=== PATIENT | female | born 1955 | race Caucasian/White ===

== ENCOUNTER 2020-10-09 09:44 | Inpatient (IN) ==
[2020-10-09] MEDS ORDERED: SODIUM CHLORIDE 0.9% 1,000 ML IV STA ×2 (10:55→12:37)
[2020-10-09] MEDS ORDERED: ONDANSETRON 4 MG/2 ML VIAL IV STA (10:56)
[2020-10-09 11:17] LABS: Basophils # 0.1 10*3/uL (0.0-0.2); Basophils % 0.2 % (0.0-0.8); Eosinophils # 0.1 10*3/uL (0.0-0.87); Eosinophils % 0.2 % (0.00-10.9); Hematocrit 31.3 VOL% (35.7-47.0); Hemoglobin 9.4 GM/DL (12.0-16.0); Immature Granulocytes % 1.3 %; Lymphocytes # 1.8 10*3/uL (1.4-4.0); Lymphocytes % 5.7 % (21.3-54.2); Mean Corpuscular Volume 74.9 FL (87-102); Mean Platelet Volume 8.7 FL (9.6-12.0); Monocytes % 1.3 % (1.7-12.7); NRBC # 0.02 10*3/uL; Neutrophils % 91.3 % (38.7-73.9); Platelet Count 612 T/CUMM (130-400); Red Blood Count 4.18 MC/CUMM (3.8-5.5); Red Cell Distribution Width 26.4 % (9.3-17.3)
[2020-10-09 11:40] LABS: Anisocytosis 1+; Band Neutrophils 20 % (0-10); Lymphocytes 3 % (20-55); Platelet Estimate Increased; Segmented Neutrophils 73 % (50-85); Smudge Cells Few; Total Cells Counted 100; Toxic Granulation 1+
[2020-10-09 11:41] LABS: Polychromasia Slight
[2020-10-09 11:51] LABS: Bilirubin,Urine Negative (Negative); Blood, Urine Small mg/dL (Negative); Glucose,Urine (UA) Negative (Negative); Ketones,Urine 5 mg/dL (Negative); Mucus,Urine Occasional /LPF (Occasional); Nitrite,Urine Positive (Negative); Protein,Urine 30 MG/DL; RBC,Urine 2 /HPF (0-4); Squamous Epithelial Cell,Urine Occasional /HPF (0-10); Urine Appearance Slightly Hazy (Clear); Urine Color Amber (Yellow); Urine Specific Gravity 1.017 (1.001-1.035); WBC,Urine 458 /HPF (0-6)
[2020-10-09] MEDS ORDERED: cefTRIAXone 1,000 MG in SODIUM CHLORIDE 0.9% 100 ML IV STA (12:00)
[2020-10-09] MEDS ORDERED: cefTRIAXone 1,000 MG VIAL ONE (12:07)
[2020-10-09 12:35] LABS: Albumin 1.6 G/DL (3.4-5.0); Bilirubin,Total 0.6 MG/DL (0.2-1.0); Calcium 8.2 MG/DL (8.5-10.1); Potassium 3.7 MMOL/L (3.5-5.1); Total Protein 7.1 G/DL (6.4-8.3)
[2020-10-09] MEDS ORDERED: DEXTROSE 50% 25 GM/50 ML VIAL IV PRN (13:32)
[2020-10-09] MEDS ORDERED: GLUCAGON 1 MG VIAL IM PRN (13:32)
[2020-10-09] MEDS: SODIUM CHLORIDE 0.9% 1,000 ML IV SCH (18:01)
[2020-10-09] MEDS: ROSUVASTATIN 10 MG TABLET PO SCH (20:41)
[2020-10-09] MEDS: QUEtiapine 25 MG TABLET PO SCH (20:41)
[2020-10-09] MEDS: ENOXAPARIN 40 MG/0.4 ML SYRINGE SUBCUT SCH (20:41)
[2020-10-09] MEDS: carvediloL 6.25 MG TABLET PO SCH (20:41)
[2020-10-09] MEDS: ONDANSETRON 4 MG/2 ML VIAL IV PRN (23:44)
[2020-10-10] MEDS ORDERED: ALUM/MAG/SIMETH/LIDO VISC 1:1 30 ML BOTTLE PO ONE (05:54)
[2020-10-10 06:06] LABS: Basophils # 0.1 10*3/uL (0.0-0.2); Basophils % 0.2 % (0.0-0.8); Eosinophils % 0.1 % (0.00-10.9); Hematocrit 27.4 VOL% (35.7-47.0); Hemoglobin 8.1 GM/DL (12.0-16.0); Immature Granulocytes % 1.7 %; Immature Granulocytes Absolute 0.37 #; Lymphocytes # 1.8 10*3/uL (1.4-4.0); Lymphocytes % 8.5 % (21.3-54.2); Mean Corpuscular HGB Conc 29.6 GM/DL (32-36); Mean Corpuscular Volume 77.2 FL (87-102); Mean Platelet Volume 8.8 FL (9.6-12.0); Monocytes % 4.3 % (1.7-12.7); Neutrophils % 85.2 % (38.7-73.9); Platelet Count 519 T/CUMM (130-400); Red Blood Count 3.55 MC/CUMM (3.8-5.5); Red Cell Distribution Width 25.6 % (9.3-17.3); White Blood Count 21.4 T/CUMM (4-12)
[2020-10-10 06:38] LABS: Band Neutrophils 2 % (0-10); Hypochromasia 1+; Lymphocytes 4 % (20-55); Microcytosis 1+; Platelet Estimate Increased; Segmented Neutrophils 93 % (50-85); Total Cells Counted 100
[2020-10-10] MEDS ORDERED: TOLTERODINE LA 2 MG CAPSULE PO SCH (09:00)
[2020-10-10 09:20] LABS: Alanine Aminotransferase 10 U/L (13-56); Alkaline Phosphatase 179 U/L (45-117); Aspartate Amino Transferase 31 U/L (0-37); Blood Urea Nitrogen 18 MG/DL (7-18); Calcium 7.4 MG/DL (8.5-10.1); Carbon Dioxide 17 MMOL/L (21-32); Estimated Glom Filtration Rate 67 ML/MIN; Glucose 79 MG/DL (74-106); Osmolality,Calculated 275.7 MOS/KG (273-304); Potassium 3.5 MMOL/L (3.5-5.1); Sodium 138 MMOL/L (136-145); Total Protein 5.2 G/DL (6.4-8.3); Triglycerides 91 MG/DL (2-150); VLDL CHOLESTEROL 18.2 MG/DL
[2020-10-10 09:21] LABS: HDL Cholesterol < 10 MG/DL (40-60)
[2020-10-10] MEDS: FOLIC ACID 0.4 MG TABLET PO SCH (09:28)
[2020-10-10] MEDS: lisinopriL 10 MG TABLET PO SCH (09:28)
[2020-10-10] MEDS: DULoxetine 30 MG CAPSULE PO SCH (09:28)
[2020-10-10] MEDS: CHOLECALCIFEROL 1,000 UNIT TABLET PO SCH (09:28)
[2020-10-10] MEDS: MONTELUKAST 10 MG TABLET PO SCH (09:28)
[2020-10-10] MEDS: cefTRIAXone 1,000 MG in SYRINGE 1 EACH IV SCH (09:29)
[2020-10-10] MEDS: ONDANSETRON 4 MG/2 ML VIAL IV PRN (10:35)
[2020-10-10] MEDS: carvediloL 6.25 MG TABLET PO SCH ×2 (10:35→16:35)
[2020-10-10] MEDS: SODIUM CHLORIDE 0.9% 1,000 ML IV SCH ×3 (10:41→21:43)
[2020-10-10] MEDS ORDERED: ONDANSETRON ODT 4 MG TABLET PO PRN (12:43)
[2020-10-10] MEDS: METOCLOPRAMIDE 10 MG TABLET PO SCH ×3 (13:54→21:42)
[2020-10-10] MEDS: PHENAZOPYRIDINE 95 MG TABLET PO SCH (16:35)
[2020-10-10] MEDS: ENOXAPARIN 40 MG/0.4 ML SYRINGE SUBCUT SCH (21:42)
[2020-10-10] MEDS: DOCUSATE SODIUM 100 MG CAPSULE PO SCH (21:42)
[2020-10-10] MEDS: QUEtiapine 25 MG TABLET PO SCH (21:43)
[2020-10-10] MEDS: ROSUVASTATIN 10 MG TABLET PO SCH (21:43)
[2020-10-11] MEDS: SODIUM CHLORIDE 0.9% 1,000 ML IV SCH ×4 (03:07→23:46)
[2020-10-11] MEDS: CHOLECALCIFEROL 1,000 UNIT TABLET PO SCH (09:01)
[2020-10-11] MEDS: DOCUSATE SODIUM 100 MG CAPSULE PO SCH ×2 (09:02→21:06)
[2020-10-11] MEDS: PHENAZOPYRIDINE 95 MG TABLET PO SCH ×3 (09:02→16:52)
[2020-10-11] MEDS: cefTRIAXone 1,000 MG in SYRINGE 1 EACH IV SCH (09:02)
[2020-10-11] MEDS: PANTOPRAZOLE 40 MG TABLET PO SCH (09:02)
[2020-10-11] MEDS: MONTELUKAST 10 MG TABLET PO SCH (09:02)
[2020-10-11] MEDS: lisinopriL 10 MG TABLET PO SCH (09:02)
[2020-10-11] MEDS: FOLIC ACID 0.4 MG TABLET PO SCH (09:02)
[2020-10-11] MEDS: METOCLOPRAMIDE 10 MG TABLET PO SCH ×4 (09:02→21:06)
[2020-10-11] MEDS: TOLTERODINE LA 2 MG CAPSULE PO SCH (09:05)
[2020-10-11] MEDS: carvediloL 6.25 MG TABLET PO SCH ×2 (09:54→16:53)
[2020-10-11] MEDS: DULoxetine 30 MG CAPSULE PO SCH (09:54)
[2020-10-11] MEDS: MEROPENEM 500 MG in SODIUM CHLORIDE 0.9% 100 ML IV SCH ×2 (17:26→23:46)
[2020-10-11] MEDS: ENOXAPARIN 40 MG/0.4 ML SYRINGE SUBCUT SCH (21:05)
[2020-10-11] MEDS: ROSUVASTATIN 10 MG TABLET PO SCH (21:06)
[2020-10-11] MEDS: QUEtiapine 25 MG TABLET PO SCH (21:06)
[2020-10-11] MEDS ORDERED: MEROPENEM 1,000 MG in SODIUM CHLORIDE 0.9% 100 ML IV SCH (22:00)
[2020-10-12] MEDS: MEROPENEM 500 MG in SODIUM CHLORIDE 0.9% 100 ML IV SCH ×4 (04:48→22:00)
[2020-10-12 06:33] LABS: Alanine Aminotransferase 12 U/L (13-56); Alkaline Phosphatase 188 U/L (45-117); Aspartate Amino Transferase 24 U/L (0-37); Bilirubin,Total < 0.39 MG/DL (0.2-1.0); Blood Urea Nitrogen 20 MG/DL (7-18); Calcium 7.6 MG/DL (8.5-10.1); Carbon Dioxide 19 MMOL/L (21-32); Estimated Glom Filtration Rate 78 ML/MIN; Glucose 66 MG/DL (74-106); Osmolality,Calculated 277.5 MOS/KG (273-304); Potassium 3.6 MMOL/L (3.5-5.1); Sodium 139 MMOL/L (136-145); Total Protein 5.2 G/DL (6.4-8.3)
[2020-10-12 06:34] LABS: Basophils # 0.1 10*3/uL (0.0-0.2); Basophils % 0.3 % (0.0-0.8); Eosinophils # 0.3 10*3/uL (0.0-0.87); Eosinophils % 1.4 % (0.00-10.9); Hematocrit 26.8 VOL% (35.7-47.0); Hemoglobin 7.8 GM/DL (12.0-16.0); Immature Granulocytes % 1.3 %; Immature Granulocytes Absolute 0.27 #; Lymphocytes # 1.8 10*3/uL (1.4-4.0); Lymphocytes % 8.3 % (21.3-54.2); Mean Corpuscular HGB Conc 29.1 GM/DL (32-36); Mean Corpuscular Volume 78.6 FL (87-102); Mean Platelet Volume 9.5 FL (9.6-12.0); Monocytes % 4.2 % (1.7-12.7); Neutrophils % 84.5 % (38.7-73.9); Platelet Count 463 T/CUMM (130-400); Red Blood Count 3.41 MC/CUMM (3.8-5.5); Red Cell Distribution Width 25.9 % (9.3-17.3); White Blood Count 21.5 T/CUMM (4-12)
[2020-10-12 06:46] LABS: Eosinophils 2 % (0-10); Hypochromasia 2+; Lymphocytes 9 % (20-55); Microcytosis 1+; Platelet Estimate Adequate; Segmented Neutrophils 84 % (50-85); Total Cells Counted 100
[2020-10-12] MEDS ORDERED: ETOMIDATE 20 MG/10 ML VIAL IV ONE (09:23)
[2020-10-12] MEDS ORDERED: LIDOCAINE 2% 5 ML VIAL ONE (09:23)
[2020-10-12] MEDS ORDERED: propofoL 200 MG/20 ML VIAL IV ONE (09:23)
[2020-10-12] MEDS ORDERED: PHENYLEPHRINE 1 MG/10 ML SYRINGE IV ONE (09:48)
[2020-10-12] MEDS: LACTATED RINGERS 1,000 ML IV SCH (10:15)
[2020-10-12] MEDS: METOCLOPRAMIDE 10 MG TABLET PO SCH ×4 (11:04→21:53)
[2020-10-12] MEDS: lisinopriL 10 MG TABLET PO SCH (12:06)
[2020-10-12] MEDS: PANTOPRAZOLE 40 MG TABLET PO SCH (12:06)
[2020-10-12] MEDS: carvediloL 6.25 MG TABLET PO SCH ×2 (12:06→16:26)
[2020-10-12] MEDS: MONTELUKAST 10 MG TABLET PO SCH (12:06)
[2020-10-12] MEDS: FOLIC ACID 0.4 MG TABLET PO SCH (12:07)
[2020-10-12] MEDS: CHOLECALCIFEROL 1,000 UNIT TABLET PO SCH (12:07)
[2020-10-12] MEDS: DULoxetine 30 MG CAPSULE PO SCH (12:07)
[2020-10-12] MEDS: PHENAZOPYRIDINE 95 MG TABLET PO SCH ×3 (12:08→16:39)
[2020-10-12] MEDS: DOCUSATE SODIUM 100 MG CAPSULE PO SCH ×2 (12:09→21:53)
[2020-10-12] MEDS ORDERED: ALBUMIN 25% 25 GM in PREMIX 1 EACH IV ONE (14:44)
[2020-10-12] MEDS: TOLTERODINE LA 2 MG CAPSULE PO SCH ×2 (16:01→16:40)
[2020-10-12] MEDS: QUEtiapine 25 MG TABLET PO SCH (21:54)
[2020-10-12] MEDS: ENOXAPARIN 40 MG/0.4 ML SYRINGE SUBCUT SCH (21:54)
[2020-10-12] MEDS: ROSUVASTATIN 10 MG TABLET PO SCH (21:54)
[2020-10-13] MEDS: MEROPENEM 500 MG in SODIUM CHLORIDE 0.9% 100 ML IV SCH ×4 (05:33→22:27)
[2020-10-13 06:43] LABS: Microalbum Ur Quant Random 5.8 MG/L (0-20); Microalbum/Creat Ratio Random 7.7 RATIO (0-30)
[2020-10-13 08:58] LABS: Basophils # 0.1 10*3/uL (0.0-0.2); Basophils % 0.3 % (0.0-0.8); Eosinophils # 0.4 10*3/uL (0.0-0.87); Eosinophils % 2.6 % (0.00-10.9); Hematocrit 25.1 VOL% (35.7-47.0); Immature Granulocytes % 2.4 %; Lymphocytes # 2.1 10*3/uL (1.4-4.0); Lymphocytes % 12.6 % (21.3-54.2); Mean Corpuscular HGB Conc 30.3 GM/DL (32-36); Mean Corpuscular Volume 75.6 FL (87-102); Mean Platelet Volume 9.1 FL (9.6-12.0); Monocytes % 6.2 % (1.7-12.7); Neutrophils % 75.9 % (38.7-73.9); Platelet Count 503 T/CUMM (130-400); Red Blood Count 3.32 MC/CUMM (3.8-5.5); Red Cell Distribution Width 25.8 % (9.3-17.3); White Blood Count 16.9 T/CUMM (4-12)
[2020-10-13 09:01] LABS: Albumin 1.5 G/DL (3.4-5.0); Bilirubin,Total 0.4 MG/DL (0.2-1.0); Calcium 7.9 MG/DL (8.5-10.1); Hemoglobin 7.6 GM/DL (12.0-16.0); Osmolality,Calculated 278.4 MOS/KG (273-304); Potassium 3.3 MMOL/L (3.5-5.1); Total Protein 5.5 G/DL (6.4-8.3)
[2020-10-13 09:44] LABS: Hypochromasia 2+
[2020-10-13 09:45] LABS: Microcytosis 1+; Ovalocytes Slight; Platelet Estimate Increased; Spherocytes Slight
[2020-10-13] MEDS ORDERED: SODIUM CHLORIDE 0.9% 100 ML IV ONE (09:54)
[2020-10-13] MEDS: PHENAZOPYRIDINE 95 MG TABLET PO SCH ×4 (10:19→18:04)
[2020-10-13] MEDS: PANTOPRAZOLE 40 MG TABLET PO SCH (10:19)
[2020-10-13] MEDS: CHOLECALCIFEROL 1,000 UNIT TABLET PO SCH (10:19)
[2020-10-13] MEDS: MONTELUKAST 10 MG TABLET PO SCH (10:20)
[2020-10-13] MEDS: FOLIC ACID 0.4 MG TABLET PO SCH (10:20)
[2020-10-13] MEDS: TOLTERODINE LA 2 MG CAPSULE PO SCH (10:20)
[2020-10-13] MEDS: lisinopriL 10 MG TABLET PO SCH (10:20)
[2020-10-13] MEDS: METOCLOPRAMIDE 10 MG TABLET PO SCH ×5 (10:20→20:59)
[2020-10-13] MEDS: DULoxetine 30 MG CAPSULE PO SCH (10:20)
[2020-10-13] MEDS: carvediloL 6.25 MG TABLET PO SCH (10:20)
[2020-10-13] MEDS: DOCUSATE SODIUM 100 MG CAPSULE PO SCH ×2 (10:38→20:59)
[2020-10-13] MEDS: carvediloL 12.5 MG TABLET PO SCH (16:35)
[2020-10-13] MEDS: ENOXAPARIN 40 MG/0.4 ML SYRINGE SUBCUT SCH (20:59)
[2020-10-13] MEDS: QUEtiapine 25 MG TABLET PO SCH (20:59)
[2020-10-13] MEDS: ROSUVASTATIN 10 MG TABLET PO SCH (20:59)
[2020-10-13] MEDS: LACTATED RINGERS 1,000 ML IV SCH (21:56)
[2020-10-14 05:30] LABS: Albumin 1.3 G/DL (3.4-5.0); Bilirubin,Total 0.4 MG/DL (0.2-1.0); Calcium 7.9 MG/DL (8.5-10.1); Osmolality,Calculated 277.4 MOS/KG (273-304); Total Protein 5.4 G/DL (6.4-8.3)
[2020-10-14] MEDS: MEROPENEM 500 MG in SODIUM CHLORIDE 0.9% 100 ML IV SCH ×4 (05:43→22:05)
[2020-10-14 05:49] LABS: Basophils # 0.1 10*3/uL (0.0-0.2); Basophils % 0.5 % (0.0-0.8); Eosinophils # 0.3 10*3/uL (0.0-0.87); Eosinophils % 1.9 % (0.00-10.9); Hematocrit 26.5 VOL% (35.7-47.0); Immature Granulocytes % 4.4 %; Immature Granulocytes Absolute 0.68 #; Lymphocytes # 2.2 10*3/uL (1.4-4.0); Lymphocytes % 14.2 % (21.3-54.2); Mean Corpuscular HGB Conc 29.4 GM/DL (32-36); Mean Corpuscular Volume 75.5 FL (87-102); Monocytes % 6.6 % (1.7-12.7); Neutrophils % 72.4 % (38.7-73.9); Platelet Count 505 T/CUMM (130-400); Red Blood Count 3.51 MC/CUMM (3.8-5.5); Red Cell Distribution Width 26.3 % (9.3-17.3); White Blood Count 15.5 T/CUMM (4-12)
[2020-10-14 05:51] LABS: Hemoglobin 7.8 GM/DL (12.0-16.0)
[2020-10-14 05:54] LABS: Eosinophils 4 % (0-10); Lymphocytes 8 % (20-55); Nucleated Red Blood Cells 1 (0-5); Segmented Neutrophils 85 % (50-85); Total Cells Counted 100
[2020-10-14 05:55] LABS: Hypochromasia 1+; Microcytosis 1+; Platelet Estimate Increased
[2020-10-14] MEDS: DULoxetine 30 MG CAPSULE PO SCH (10:28)
[2020-10-14] MEDS: METOCLOPRAMIDE 10 MG TABLET PO SCH ×4 (10:29→20:48)
[2020-10-14] MEDS: lisinopriL 10 MG TABLET PO SCH (10:30)
[2020-10-14] MEDS: FOLIC ACID 0.4 MG TABLET PO SCH (10:30)
[2020-10-14] MEDS: MONTELUKAST 10 MG TABLET PO SCH (10:30)
[2020-10-14] MEDS: TOLTERODINE LA 2 MG CAPSULE PO SCH (10:30)
[2020-10-14] MEDS: PANTOPRAZOLE 40 MG TABLET PO SCH (10:30)
[2020-10-14] MEDS: carvediloL 12.5 MG TABLET PO SCH ×2 (10:30→17:24)
[2020-10-14] MEDS: PHENAZOPYRIDINE 95 MG TABLET PO SCH ×3 (10:30→17:23)
[2020-10-14] MEDS: CHOLECALCIFEROL 1,000 UNIT TABLET PO SCH (10:31)
[2020-10-14] MEDS: POTASSIUM CHLORIDE 20 MEQ/15 ML UDCUP PER TUBE PRN ×3 (10:32→23:02)
[2020-10-14] MEDS: DOCUSATE SODIUM 100 MG CAPSULE PO SCH ×2 (11:41→20:48)
[2020-10-14] MEDS: QUEtiapine 25 MG TABLET PO SCH (20:48)
[2020-10-14] MEDS: ROSUVASTATIN 10 MG TABLET PO SCH (20:48)
[2020-10-14] MEDS: ENOXAPARIN 40 MG/0.4 ML SYRINGE SUBCUT SCH (20:48)
[2020-10-15] MEDS: POTASSIUM CHLORIDE 20 MEQ/15 ML UDCUP PER TUBE PRN ×2 (01:35→03:43)
[2020-10-15] MEDS: MEROPENEM 500 MG in SODIUM CHLORIDE 0.9% 100 ML IV SCH ×4 (04:21→23:23)
[2020-10-15] MEDS: LACTATED RINGERS 1,000 ML IV SCH ×2 (04:59→08:31)
[2020-10-15 06:32] LABS: Basophils # 0.1 10*3/uL (0.0-0.2); Basophils % 0.7 % (0.0-0.8); Eosinophils # 0.3 10*3/uL (0.0-0.87); Hematocrit 26.2 VOL% (35.7-47.0); Hemoglobin 7.8 GM/DL (12.0-16.0); Immature Granulocytes % 6.3 %; Immature Granulocytes Absolute 0.87 #; Lymphocytes # 2.1 10*3/uL (1.4-4.0); Lymphocytes % 14.8 % (21.3-54.2); Mean Corpuscular HGB Conc 29.8 GM/DL (32-36); Mean Corpuscular Volume 74.2 FL (87-102); Mean Platelet Volume 8.9 FL (9.6-12.0); Monocytes % 7.5 % (1.7-12.7); Neutrophils % 68.7 % (38.7-73.9); Platelet Count 519 T/CUMM (130-400); Red Blood Count 3.53 MC/CUMM (3.8-5.5); Red Cell Distribution Width 26.2 % (9.3-17.3); White Blood Count 13.9 T/CUMM (4-12)
[2020-10-15 07:08] LABS: Albumin 1.3 G/DL (3.4-5.0); Bilirubin,Total 0.4 MG/DL (0.2-1.0); Calcium 7.9 MG/DL (8.5-10.1); Potassium 3.6 MMOL/L (3.5-5.1); Total Protein 5.3 G/DL (6.4-8.3)
[2020-10-15 07:14] LABS: Eosinophils 4 % (0-10); Hypochromasia 2+; Lymphocytes 12 % (20-55); Microcytosis 1+; Ovalocytes Slight; Platelet Estimate Increased; Segmented Neutrophils 78 % (50-85); Total Cells Counted 100
[2020-10-15] MEDS: SODIUM CHLORIDE 0.9% 1,000 ML IV SCH ×4 (08:10→21:16)
[2020-10-15] MEDS: METOCLOPRAMIDE 10 MG TABLET PO SCH ×4 (08:59→21:09)
[2020-10-15] MEDS: carvediloL 12.5 MG TABLET PO SCH ×2 (09:00→17:13)
[2020-10-15] MEDS: PHENAZOPYRIDINE 95 MG TABLET PO SCH ×3 (09:00→17:13)
[2020-10-15] MEDS: lisinopriL 10 MG TABLET PO SCH (09:00)
[2020-10-15] MEDS: PANTOPRAZOLE 40 MG TABLET PO SCH (09:00)
[2020-10-15] MEDS: DOCUSATE SODIUM 100 MG CAPSULE PO SCH ×2 (09:00→21:08)
[2020-10-15] MEDS: MONTELUKAST 10 MG TABLET PO SCH (09:00)
[2020-10-15] MEDS: DULoxetine 30 MG CAPSULE PO SCH (09:00)
[2020-10-15] MEDS: LACTULOSE 20 GM/30 ML UDCUP PER TUBE PRN (09:01)
[2020-10-15] MEDS: FOLIC ACID 0.4 MG TABLET PO SCH (09:24)
[2020-10-15] MEDS: TOLTERODINE LA 2 MG CAPSULE PO SCH (09:24)
[2020-10-15] MEDS: CHOLECALCIFEROL 1,000 UNIT TABLET PO SCH (09:24)
[2020-10-15] MEDS: MEGESTROL 40 MG TABLET PO SCH ×2 (14:46→21:09)
[2020-10-15] MEDS: QUEtiapine 25 MG TABLET PO SCH (21:08)
[2020-10-15] MEDS: ROSUVASTATIN 10 MG TABLET PO SCH (21:09)
[2020-10-15] MEDS: ENOXAPARIN 40 MG/0.4 ML SYRINGE SUBCUT SCH (21:13)
[2020-10-16] MEDS: SODIUM CHLORIDE 0.9% 1,000 ML IV SCH ×3 (01:19→19:05)
[2020-10-16] MEDS: MEROPENEM 500 MG in SODIUM CHLORIDE 0.9% 100 ML IV SCH ×2 (04:53→10:24)
[2020-10-16] MEDS: carvediloL 12.5 MG TABLET PO SCH ×2 (08:49→17:15)
[2020-10-16] MEDS: DULoxetine 30 MG CAPSULE PO SCH (08:49)
[2020-10-16] MEDS: PHENAZOPYRIDINE 95 MG TABLET PO SCH ×3 (08:49→17:14)
[2020-10-16] MEDS: DOCUSATE SODIUM 100 MG CAPSULE PO SCH ×2 (08:49→21:35)
[2020-10-16] MEDS: MONTELUKAST 10 MG TABLET PO SCH (08:49)
[2020-10-16] MEDS: PANTOPRAZOLE 40 MG TABLET PO SCH (08:49)
[2020-10-16] MEDS: TOLTERODINE LA 2 MG CAPSULE PO SCH (08:49)
[2020-10-16] MEDS: METOCLOPRAMIDE 10 MG TABLET PO SCH ×4 (08:49→21:35)
[2020-10-16] MEDS: CHOLECALCIFEROL 1,000 UNIT TABLET PO SCH (08:49)
[2020-10-16] MEDS: POTASSIUM CHLORIDE 20 MEQ/15 ML UDCUP PER TUBE PRN (08:50)
[2020-10-16] MEDS: MEGESTROL 40 MG TABLET PO SCH ×3 (08:50→21:35)
[2020-10-16] MEDS: lisinopriL 10 MG TABLET PO SCH (08:50)
[2020-10-16] MEDS: LACTULOSE 20 GM/30 ML UDCUP PER TUBE PRN (08:50)
[2020-10-16] MEDS: FOLIC ACID 0.4 MG TABLET PO SCH (08:56)
[2020-10-16] MEDS: POLYETHYLENE GLYCOL POWDER 17 GM PACK PO SCH (10:24)
[2020-10-16] MEDS: cefTRIAXone 2,000 MG in SYRINGE 1 EACH IV SCH (14:25)
[2020-10-16] MEDS: ROSUVASTATIN 10 MG TABLET PO SCH (21:35)
[2020-10-16] MEDS: QUEtiapine 25 MG TABLET PO SCH (21:35)
[2020-10-16] MEDS: ENOXAPARIN 40 MG/0.4 ML SYRINGE SUBCUT SCH (21:38)
[2020-10-17] MEDS: SODIUM CHLORIDE 0.9% 1,000 ML IV SCH ×3 (02:30→15:06)
[2020-10-17 05:37] LABS: Albumin 1.1 G/DL (3.4-5.0); Bilirubin,Total 0.5 MG/DL (0.2-1.0); Calcium 7.9 MG/DL (8.5-10.1); Osmolality,Calculated 277.3 MOS/KG (273-304); Potassium 3.7 MMOL/L (3.5-5.1); Total Protein 5.1 G/DL (6.4-8.3)
[2020-10-17 06:31] LABS: Basophils # 0.1 10*3/uL (0.0-0.2); Basophils % 0.6 % (0.0-0.8); Eosinophils # 0.4 10*3/uL (0.0-0.87); Eosinophils % 3.1 % (0.00-10.9); Hematocrit 25.2 VOL% (35.7-47.0); Hemoglobin 7.5 GM/DL (12.0-16.0); Immature Granulocytes % 7.9 %; Immature Granulocytes Absolute 1.02 #; Lymphocytes % 23.1 % (21.3-54.2); Mean Corpuscular HGB Conc 29.8 GM/DL (32-36); Mean Corpuscular Volume 74.8 FL (87-102); Mean Platelet Volume 9.1 FL (9.6-12.0); Monocytes % 8.3 % (1.7-12.7); Platelet Count 441 T/CUMM (130-400); Red Blood Count 3.37 MC/CUMM (3.8-5.5); Red Cell Distribution Width 26.2 % (9.3-17.3); White Blood Count 12.8 T/CUMM (4-12)
[2020-10-17 06:55] LABS: Band Neutrophils 4 % (0-10); Eosinophils 1 % (0-10); Hypochromasia 2+; Lymphocytes 19 % (20-55); Microcytosis 1+; Platelet Estimate Adequate; Segmented Neutrophils 70 % (50-85); Total Cells Counted 100
[2020-10-17] MEDS: DULoxetine 30 MG CAPSULE PO SCH (08:47)
[2020-10-17] MEDS: METOCLOPRAMIDE 10 MG TABLET PO SCH ×4 (08:47→20:47)
[2020-10-17] MEDS: TOLTERODINE LA 2 MG CAPSULE PO SCH (08:47)
[2020-10-17] MEDS: MONTELUKAST 10 MG TABLET PO SCH (08:47)
[2020-10-17] MEDS: CHOLECALCIFEROL 1,000 UNIT TABLET PO SCH (08:48)
[2020-10-17] MEDS: PANTOPRAZOLE 40 MG TABLET PO SCH (08:48)
[2020-10-17] MEDS: POLYETHYLENE GLYCOL POWDER 17 GM PACK PO SCH (08:48)
[2020-10-17] MEDS: lisinopriL 10 MG TABLET PO SCH (08:48)
[2020-10-17] MEDS: carvediloL 12.5 MG TABLET PO SCH ×2 (08:48→17:18)
[2020-10-17] MEDS: DOCUSATE SODIUM 100 MG CAPSULE PO SCH ×2 (08:48→20:48)
[2020-10-17] MEDS: FOLIC ACID 0.4 MG TABLET PO SCH (08:49)
[2020-10-17] MEDS: PHENAZOPYRIDINE 95 MG TABLET PO SCH ×3 (08:49→17:18)
[2020-10-17] MEDS: MEGESTROL 40 MG TABLET PO SCH ×3 (08:50→20:47)
[2020-10-17] MEDS: cefTRIAXone 2,000 MG in SYRINGE 1 EACH IV SCH (15:01)
[2020-10-17] MEDS: ROSUVASTATIN 10 MG TABLET PO SCH (20:47)
[2020-10-17] MEDS: QUEtiapine 25 MG TABLET PO SCH (20:48)
[2020-10-17] MEDS: ENOXAPARIN 40 MG/0.4 ML SYRINGE SUBCUT SCH (20:48)
[2020-10-18] MEDS: SODIUM CHLORIDE 0.9% 1,000 ML IV SCH ×3 (03:27→13:05)
[2020-10-18 05:37] LABS: Basophils # 0.1 10*3/uL (0.0-0.2); Basophils % 0.6 % (0.0-0.8); Eosinophils # 0.3 10*3/uL (0.0-0.87); Eosinophils % 2.2 % (0.00-10.9); Hematocrit 24.1 VOL% (35.7-47.0); Hemoglobin 7.3 GM/DL (12.0-16.0); Immature Granulocytes % 6.6 %; Immature Granulocytes Absolute 0.93 #; Lymphocytes # 2.6 10*3/uL (1.4-4.0); Lymphocytes % 18.6 % (21.3-54.2); Mean Corpuscular HGB Conc 30.3 GM/DL (32-36); Mean Corpuscular Volume 74.2 FL (87-102); Mean Platelet Volume 9.2 FL (9.6-12.0); Monocytes % 6.8 % (1.7-12.7); NRBC # 0.02 10*3/uL; Neutrophils % 65.2 % (38.7-73.9); Platelet Count 442 T/CUMM (130-400); Red Blood Count 3.25 MC/CUMM (3.8-5.5); Red Cell Distribution Width 26.2 % (9.3-17.3); White Blood Count 14.2 T/CUMM (4-12)
[2020-10-18 06:01] LABS: Eosinophils 1 % (0-10); Hypochromasia 2+; Lymphocytes 15 % (20-55); Platelet Estimate Adequate; Segmented Neutrophils 81 % (50-85); Total Cells Counted 100
[2020-10-18 06:02] LABS: Microcytosis 1+
[2020-10-18 06:07] LABS: Albumin 1.2 G/DL (3.4-5.0); Bilirubin,Total 0.6 MG/DL (0.2-1.0); Calcium 7.7 MG/DL (8.5-10.1); Osmolality,Calculated 279.1 MOS/KG (273-304); Potassium 3.7 MMOL/L (3.5-5.1); Total Protein 5.2 G/DL (6.4-8.3)
[2020-10-18] MEDS: PANTOPRAZOLE 40 MG TABLET PO SCH (09:28)
[2020-10-18] MEDS: TOLTERODINE LA 2 MG CAPSULE PO SCH (09:28)
[2020-10-18] MEDS: CHOLECALCIFEROL 1,000 UNIT TABLET PO SCH (09:28)
[2020-10-18] MEDS: MONTELUKAST 10 MG TABLET PO SCH (09:29)
[2020-10-18] MEDS: MEGESTROL 40 MG TABLET PO SCH ×2 (09:29→16:52)
[2020-10-18] MEDS: POLYETHYLENE GLYCOL POWDER 17 GM PACK PO SCH (09:29)
[2020-10-18] MEDS: FOLIC ACID 0.4 MG TABLET PO SCH (09:29)
[2020-10-18] MEDS: PHENAZOPYRIDINE 95 MG TABLET PO SCH ×3 (09:29→17:05)
[2020-10-18] MEDS: lisinopriL 10 MG TABLET PO SCH (09:29)
[2020-10-18] MEDS: METOCLOPRAMIDE 10 MG TABLET PO SCH ×3 (09:29→16:52)
[2020-10-18] MEDS: DOCUSATE SODIUM 100 MG CAPSULE PO SCH (09:29)
[2020-10-18] MEDS: carvediloL 12.5 MG TABLET PO SCH ×2 (09:29→16:55)
[2020-10-18] MEDS: DULoxetine 30 MG CAPSULE PO SCH (09:36)
[2020-10-18 16:13] VITALS: BP 126/80
[2020-10-18] MEDS: cefTRIAXone 2,000 MG in SYRINGE 1 EACH IV SCH (16:52)
== END 2020-10-18 18:11 | disposition swing bed (61) | DRG 689 ==
LOC: N.ED 09:44 → N.EDINP 09:44 → N.TELEN 16:12 → SUATTDRO 10-10 12:54
PROVIDERS: ADMIT Internal Medicine; ATTEND Family Medicine